=== PATIENT | female | born 1980 | race American Indian/Alaskan Native ===

== ENCOUNTER 2019-03-01 19:22 | Emergency (ER) | payer SELFPAY ==
[2019-03-01] MEDS ORDERED: CATAPRES PO ONE (19:55)
--- NOTE | 2019-03-01 19:56 | Event Note ---
ED Screening Note Date of service: 03/01/19 Time: 19:52 ED Screening Note: This is a 39 y.o. F. that presents to the ER with elevated blood pressure. Patient went to a workman comp clinic yesterday and told to f/u in ER for elevated blood pressure. Current smoker This initial assessment/diagnostic orders/clinical plan/treatment(s) is/are subject to change based on patients health status, clinical progression and re- assessment by fellow clinical providers in the ED. Further treatment and workup at subsequent clinical providers discretion. Patient/guardian urged not to elope from the ED as their condition may be serious if not clinically assessed and managed. Initial orders include: CMP, CBC, UA Given clonidine 0.2 mg po once.
[2019-03-01] MEDS ORDERED: CATAPRES ONE (19:58)
[2019-03-01 20:36] LABS: Basophils % (Auto) 0.4 % (0.0-1.8); Eosinophils # (Auto) 0.2 K/mm3 (0.0-0.4); Eosinophils % (Auto) 1.7 % (0.0-4.3); Hematocrit 38.7 % (30.3-42.9); Hemoglobin 12.5 gm/dl (10.1-14.3); Lymphocytes # (Auto) 3.1 K/mm3 (1.2-5.4); Lymphocytes % (Auto) 30.9 % (13.4-35.0); Mean Corpuscular HGB Conc 32 % (30-34); Mean Corpuscular Volume 80 fl (79-97); Monocytes # (Auto) 0.7 K/mm3 (0.0-0.8); Monocytes % (Auto) 7.3 % (0.0-7.3); Platelet Count 229 K/mm3 (140-440); Red Blood Count 4.82 M/mm3 (3.65-5.03)
[2019-03-01 20:47] LABS: Alanine Aminotransferase 20 units/L (7-56); Albumin 4.1 g/dL (3.9-5); BUN/Creatinine Ratio 13; Blood Urea Nitrogen 8 mg/dL (7-17); Calcium 9.2 mg/dL (8.4-10.2); Hemolysis Index 46
--- NOTE | 2019-03-01 20:48 | Emergency Department Report ---
ED General Adult HPI - General Chief complaint: High BP Stated complaint: ELEVATED BLOOD PRESSURE Time Seen by Provider: 03/01/19 19:52 Source: patient Mode of arrival: Ambulatory Limitations: No Limitations - History of Present Illness Initial comments: Patient is a 39-year-old female that presents emergency room for elevated blood pressure. Patient states 2 days ago she was told she had high blood pressure [facility]. Patient denies chest pain. Patient denies headache. Patient denies dizziness. Patient denies blurry vision. Patient denies physical complaint. Patient states she has a history of PCO S and high blood pressure. Patient states she is not currently taking any blood pressure medication. -: Sudden Improves with: rest Worsens with: eating, movement Associated Symptoms: denies other symptoms. denies: confusion, chest pain, cough, diaphoresis, fever/chills, headaches, loss of appetite, malaise, nausea/vomiting, rash, seizure, shortness of breath, syncope, weakness Treatments Prior to Arrival: none - Related Data Previous Rx's Medication Instructions Recorded Last Taken Type Losartan [Cozaar] 50 mg PO QDAY 15 Days #15 tablet 03/01/19 Unknown Rx Allergies Allergy/AdvReac Type Severity Reaction Status Date / Time No Known Allergies Allergy Unverified 03/01/19 19:57 ED Review of Systems ROS: Stated complaint: ELEVATED BLOOD PRESSURE Other details as noted in HPI Constitutional: denies: chills, fever Eyes: denies: eye pain, eye discharge, vision change ENT: denies: ear pain, throat pain Respiratory: denies: cough, shortness of breath, wheezing Cardiovascular: denies: chest pain, palpitations Endocrine: no symptoms reported Gastrointestinal: denies: abdominal pain, nausea, diarrhea Genitourinary: denies: urgency, dysuria, discharge Musculoskeletal: denies: back pain, joint swelling, arthralgia Skin: denies: rash, lesions Neurological: denies: headache, weakness, paresthesias Psychiatric: denies: anxiety, depression Hematological/Lymphatic: denies: easy bleeding, easy bruising ED Past Medical Hx - Past Medical History Previous Medical History?: Yes Hx Hypertension: Yes Additional medical history: Obesity - Surgical History Past Surgical History?: No - Family History Family history: no significant - Social History Smoking Status: Current Every Day Smoker Substance Use Type: None - Medications Home Medications: Home Medications Medication Instructions Recorded Confirmed Last Taken Type Losartan [Cozaar] 50 mg PO QDAY 15 Days #15 tablet 03/01/19 Unknown Rx ED Physical Exam - General Limitations: No Limitations General appearance: alert, in no apparent distress - Head Head exam: Present: atraumatic, normocephalic - Eye Eye exam: Present: normal appearance, PERRL, EOMI Pupils: Present: normal accommodation - ENT ENT exam: Present: mucous membranes moist - Neck Neck exam: Present: normal inspection - Respiratory Respiratory exam: Present: normal lung sounds bilaterally. Absent: respiratory distress - Cardiovascular Cardiovascular Exam: Present: regular rate, normal rhythm. Absent: systolic murmur, diastolic murmur, rubs, gallop - GI/Abdominal GI/Abdominal exam: Present: soft, normal bowel sounds - Rectal Rectal exam: Present: deferred - Extremities Exam Extremities exam: Present: normal inspection - Back Exam Back exam: Present: normal inspection - Neurological Exam Neurological exam: Present: alert, oriented X3 - Psychiatric Psychiatric exam: Present: normal affect, normal mood - Skin Skin exam: Present: warm, dry, intact, normal color. Absent: rash ED Course Vital Signs 03/01/19 03/01/19 03/01/19 19:28 19:57 20:40 Temperature 98.2 F Pulse Rate 91 H 91 H Respiratory 16 12 Rate Blood Pressure 256/127 256/127 Blood Pressure [Right] O2 Sat by Pulse 99 97 Oximetry 03/01/19 03/01/19 03/01/19 21:10 21:40 22:30 Temperature 98.3 F Pulse Rate 75 73 68 Respiratory 13 17 19 Rate Blood Pressure Blood Pressure 184/100 171/91 150/70 [Right] O2 Sat by Pulse 100 100 99 Oximetry - Reevaluation(s) Reevaluation #1: Initial evaluation done. Patient given clonidine already and patient's blood p ressure is improved. Patient will be monitored and blood pressure rechecked periodically until blood pressures in a more safe range. 03/01/19 20:48 Reevaluation #2: Patient's blood pressure is dramatically better. Patient denies any symptoms or pain or physical complaints. I discussed all results with patient. I discussed plan of care with patient. Patient agrees to plan of care. Patient will be discharged home. Patient is stable discharge. Patient given discharge instructions. Patient voiced understanding of all structures. 03/01/19 21:56 ED Medical Decision Making - Lab Data Result diagrams: 03/01/19 20:16 03/01/19 20:16 - Medical Decision Making Patient is a 39-year-old female that S emergency room for management of her high blood pressure. Patient did not have any physical complaints. Patient was given blood pressure medications in the ER and her blood pressure responded well. I discussed at length with the patient importance of a healthy diet and low salt diet and continue his management of her blood pressure. I discussed the patient out of monitor her blood pressure. Patient stable for discharge. Patient discharged home. Patient's labs unremarkable. - Differential Diagnosis high blood pressure. Noncompliance Critical Care Time: Yes Critical care attestation.: If time is entered above; I have spent that time in minutes in the direct care of this critically ill patient, excluding procedure time. Critical Care Time: 35 minutes ED Disposition Clinical Impression: Hypertensive urgency Hypertension Qualifiers: Hypertension type: essential hypertension Qualified Code(s): I10 - Essential (primary) hypertension Disposition: - TO HOME OR SELFCARE Is pt being admited?: No Does the pt Need Aspirin: No Condition: Stable Instructions: Heart Healthy Diet (ED), How to Take a Blood Pressure (ED), DASH Eating Plan (ED), Low Sodium Diet (ED), Hypertension (ED) Additional Instructions: Patient to follow up with primary care in 2-3 days. Patient to take medications as instructed. Patient to return to ER if condition worsens. Patient increase water. Patient to eat heart healthy, low sodium diet. Patient to monitor blood pressure. Patient to keep a blood pressure log and take to her primary care follow-up. Prescriptions: Losartan [Cozaar] 50 mg PO QDAY 15 Days #15 tablet Referrals: MURRAY TURCIOS MD [Primary Care Provider] - 2-3 Days Time of Disposition: 21:59
[2019-03-01 21:16] LABS: Bilirubin,Urine NEG (Negative); Blood,Urine NEG (Negative); Color,Urine Straw (Yellow); Mucus,Urine FEW /HPF; Protein,Urine <15 mg/dL mg/dL (Negative); Urobilinogen,Urine < 2.0 mg/dL (<2.0)
[2019-03-01 22:31] VITALS: BP 150/70
== END 2019-03-01 22:45 | disposition home or self-care (01) ==
LOC: ED 19:22
DX: I16.0 Hypertensive urgency (principal); I10 Essential (primary) hypertension; F17.200 Nicotine dependence, unspecified, uncomplicated; E66.9 Obesity, unspecified; Z79.899 Other long term (current) drug therapy
CPT/HCPCS: 36415; 80053; 81001; 85025

== ENCOUNTER 2019-03-02 23:17 | Emergency (ER) | payer SELFPAY ==
[2019-03-02] MEDS ORDERED: CATAPRES PO ONE (23:48)
[2019-03-02] MEDS ORDERED: CATAPRES ONE (23:49)
[2019-03-03 00:03] LABS: Basophils % (Auto) 0.3 % (0.0-1.8); Eosinophils # (Auto) 0.1 K/mm3 (0.0-0.4); Eosinophils % (Auto) 1.8 % (0.0-4.3); Hematocrit 37.9 % (30.3-42.9); Hemoglobin 12.4 gm/dl (10.1-14.3); Lymphocytes # (Auto) 3.1 K/mm3 (1.2-5.4); Lymphocytes % (Auto) 38.3 % (13.4-35.0); Mean Corpuscular HGB Conc 33 % (30-34); Mean Corpuscular Volume 80 fl (79-97); Monocytes # (Auto) 0.8 K/mm3 (0.0-0.8); Monocytes % (Auto) 9.5 % (0.0-7.3); Platelet Count 234 K/mm3 (140-440); Red Blood Count 4.74 M/mm3 (3.65-5.03); Red Cell Distribution Width 16.4 % (13.2-15.2)
--- NOTE | 2019-03-03 00:24 | XRay Report ---
CHEST 1 VIEW INDICATION / CLINICAL INFORMATION: Chest Pain. COMPARISON: None available. FINDINGS: SUPPORT DEVICES: None. HEART / MEDIASTINUM: No significant abnormality. LUNGS / PLEURA: No significant pulmonary or pleural abnormality. No pneumothorax. ADDITIONAL FINDINGS: No significant additional findings. IMPRESSION: 1. No acute findings. Signer Name: Benja Morin MD Signed: 03/03/2019 12:20 AM Workstation Name: [id number]
[2019-03-03 00:27] LABS: BUN/Creatinine Ratio 15; Blood Urea Nitrogen 9 mg/dL (7-17); Calcium 9.1 mg/dL (8.4-10.2); Hemolysis Index 10
[2019-03-03] MEDS ORDERED: NORMODYNE IV ONE (02:35)
--- NOTE | 2019-03-03 03:42 | Emergency Department Report ---
ED Chest Pain HPI - General Chief Complaint: Chest Pain Stated Complaint: CP/HIGH BP/LIGHTHEADED Time Seen by Provider: 03/03/19 01:55 Source: patient Mode of arrival: Ambulatory Limitations: No Limitations - History of Present Illness Initial Comments: patient presents to er with chest pain, lightheadedness and elevated bp. was seen for same yesterday, took her bp pills but bp remained high. no n/v, or diaphoresis. -: Gradual Severity scale (0 -10): 0 - Related Data Previous Rx's Medication Instructions Recorded Last Taken Type Losartan [Cozaar] 50 mg PO BID 60 Days #15 tablet 03/03/19 Unknown Rx Allergies Allergy/AdvReac Type Severity Reaction Status Date / Time No Known Allergies Allergy Unverified 03/01/19 19:57 Heart Score - HEART Score History: Slightly suspicious EKG: Significant ST-depression Age: < 45 Risk factors: 1-2 risk factors Troponin: < normal limit HEART Score: 3 - Critical Actions Critical Actions: 0-3 pts:0.9-1.7%risk of adverse cardiac event.Candidate for discharge ED Review of Systems ROS: Stated complaint: CP/HIGH BP/LIGHTHEADED Other details as noted in HPI Comment: All other systems reviewed and negative ENT: ear pain Respiratory: cough Cardiovascular: chest pain Endocrine: denies: excessive sweating Gastrointestinal: denies: abdominal pain ED Past Medical Hx - Past Medical History Previous Medical History?: Yes Hx Hypertension: Yes (newly diagnosed) Additional medical history: Obesity - Surgical History Past Surgical History?: No - Social History Smoking Status: Former Smoker - Medications Home Medications: Home Medications Medication Instructions Recorded Confirmed Last Taken Type Losartan [Cozaar] 50 mg PO BID 60 Days #15 tablet 03/03/19 Unknown Rx ED Physical Exam - General Limitations: No Limitations General appearance: alert, in no apparent distress - Head Head exam: Present: atraumatic, normocephalic - Eye Eye exam: Present: normal appearance, PERRL, EOMI - Neck Neck exam: Present: normal inspection - Respiratory Respiratory exam: Present: normal lung sounds bilaterally - Cardiovascular Cardiovascular Exam: Present: regular rate, normal rhythm - GI/Abdominal GI/Abdominal exam: Present: soft, normal bowel sounds - Back Exam Back exam: Present: normal inspection - Neurological Exam Neurological exam: Present: alert, oriented X3, CN II-XII intact - Skin Skin exam: Present: warm ED Course Vital Signs 03/02/19 03/02/19 03/03/19 23:37 23:49 01:50 Temperature 98.5 F Pulse Rate 75 75 75 Respiratory 16 19 Rate Blood Pressure 194/99 194/99 Blood Pressure 155/90 [Left] O2 Sat by Pulse 100 100 Oximetry 03/03/19 03/03/19 02:50 03:40 Temperature Pulse Rate 72 82 Respiratory 17 Rate Blood Pressure 186/103 Blood Pressure 160/83 [Left] O2 Sat by Pulse 98 Oximetry ED Medical Decision Making - Lab Data Result diagrams: 03/02/19 23:45 03/02/19 23:45 Critical care attestation.: If time is entered above; I have spent that time in minutes in the direct care of this critically ill patient, excluding procedure time. ED Disposition Clinical Impression: Hypertension Qualifiers: Hypertension type: essential hypertension Qualified Code(s): I10 - Essential (primary) hypertension Chest pain Qualifiers: Chest pain type: other chest pain Qualified Code(s): R07.89 - Other chest pain; R07.8 - Other chest pain Disposition: DC-01 TO HOME OR SELFCARE Is pt being admited?: No Does the pt Need Aspirin: No Condition: Stable Instructions: Hypertension (ED), Chest Pain (ED) Prescriptions: Losartan [Cozaar] 50 mg PO BID 60 Days #15 tablet Referrals: MURRAY TURCIOS MD [Primary Care Provider] - 3-5 Days
[2019-03-03 04:08] VITALS: BP 155/87
== END 2019-03-03 04:05 | disposition home or self-care (01) ==
LOC: ED 23:17
DX: I10 Essential (primary) hypertension (principal); R07.89 Other chest pain; E66.01 Morbid (severe) obesity due to excess calories; Z68.41 Body mass index [BMI] 40.0-44.9, adult; Z87.891 Personal history of nicotine dependence; Z79.899 Other long term (current) drug therapy
CPT/HCPCS: 36415; 71045; 80048; 84484; 84703; 85025; 93005; 93010; 96374

== ENCOUNTER 2019-03-05 21:17 | Emergency (ER) | payer SELFPAY ==
--- NOTE | 2019-03-05 22:02 | Event Note ---
ED Screening Note Date of service: 03/05/19 Time: 22:00 ED Screening Note: 39 y/o female comes in for chest tightness, dizziness and elevated blood pressure. Recently started on Cozzar 100mg. This initial assessment/diagnostic orders/clinical plan/treatment(s) is/are subject to change based on patients health status, clinical progression and re- assessment by fellow clinical providers in the ED. Further treatment and workup at subsequent clinical providers discretion. Patient/guardian urged not to elope from the ED as their condition may be serious if not clinically assessed and managed. Initial orders include:
[2019-03-05] MEDS ORDERED: NORMODYNE PO ONE (22:27)
[2019-03-05 22:31] LABS: Basophils % (Auto) 0.2 % (0.0-1.8); Eosinophils # (Auto) 0.1 K/mm3 (0.0-0.4); Eosinophils % (Auto) 1.3 % (0.0-4.3); Hematocrit 39.4 % (30.3-42.9); Lymphocytes % (Auto) 31.9 % (13.4-35.0); Mean Corpuscular HGB Conc 33 % (30-34); Mean Corpuscular Volume 80 fl (79-97); Monocytes # (Auto) 0.8 K/mm3 (0.0-0.8); Monocytes % (Auto) 8.1 % (0.0-7.3); Platelet Count 256 K/mm3 (140-440); Red Blood Count 4.95 M/mm3 (3.65-5.03); Red Cell Distribution Width 16.5 % (13.2-15.2)
--- NOTE | 2019-03-05 22:35 | Emergency Department Report ---
ED Chest Pain HPI - General Chief Complaint: Chest Pain Stated Complaint: CHEST PAIN Time Seen by Provider: 03/05/19 22:00 Source: patient Mode of arrival: Ambulatory Limitations: No Limitations - History of Present Illness Initial Comments: Mrs. Mills is a very pleasant 39-year-old female who presents with elevated blood pressure and chest tightness. She has history of PCO S and hypertension. However she has not ever taken antihypertensive medication. Several days ago she was evaluated by my colleague after being told that her blood pressure was elevated at her [facility]. Says currently she was evaluated recently in the interim for chest pain. She is currently taking Cozaar twice a day with persistent elevated blood pressure at home. MD Complaint: chest pain -: Gradual, This afternoon Onset: during rest Pain Location: left chest Severity: mild Quality: aching Consistency: now resolved Improves With: nothing Worsens With: nothing Context: recent illness Treatments Prior to Arrival: none - Related Data Previous Rx's Medication Instructions Recorded Last Taken Type Losartan [Cozaar] 50 mg PO BID 60 Days #15 tablet 03/03/19 Unknown Rx hydroCHLOROthiazide [HCTZ] 25 mg PO QDAY #30 tablet 03/05/19 Unknown Rx Allergies Allergy/AdvReac Type Severity Reaction Status Date / Time No Known Allergies Allergy Unverified 03/01/19 19:57 Heart Score - HEART Score History: Slightly suspicious EKG: Normal Age: < 45 Risk factors: 1-2 risk factors Troponin: < normal limit HEART Score: 1 ED Review of Systems ROS: Stated complaint: CHEST PAIN Other details as noted in HPI Comment: All other systems reviewed and negative Constitutional: denies: fever, malaise Respiratory: denies: cough Cardiovascular: chest pain Skin: denies: rash, lesions ED Past Medical Hx - Past Medical History Previous Medical History?: Yes Hx Hypertension: Yes (newly diagnosed) Additional medical history: Obesity - Social History Smoking Status: Former Smoker Substance Use Type: None - Medications Home Medications: Home Medications Medication Instructions Recorded Confirmed Last Taken Type Losartan [Cozaar] 50 mg PO BID 60 Days #15 tablet 03/03/19 Unknown Rx hydroCHLOROthiazide [HCTZ] 25 mg PO QDAY #30 tablet 03/05/19 Unknown Rx ED Physical Exam - General Limitations: No Limitations General appearance: alert, in no apparent distress - Head Head exam: Present: atraumatic, normocephalic - Eye Eye exam: Present: normal appearance - ENT ENT exam: Present: mucous membranes moist - Neck Neck exam: Present: normal inspection, full ROM - Respiratory Respiratory exam: Present: normal lung sounds bilaterally. Absent: respiratory distress, wheezes, rales, rhonchi - Cardiovascular Cardiovascular Exam: Present: regular rate, normal rhythm, normal heart sounds. Absent: systolic murmur, diastolic murmur, rubs, gallop - GI/Abdominal GI/Abdominal exam: Present: soft, normal bowel sounds. Absent: distended, tenderness, guarding, rebound - Extremities Exam Extremities exam: Present: normal inspection - Back Exam Back exam: Present: normal inspection - Neurological Exam Neurological exam: Present: alert, oriented X3 - Psychiatric Psychiatric exam: Present: normal affect, normal mood - Skin Skin exam: Present: warm, dry, intact, normal color. Absent: rash ED Course Vital Signs 03/05/19 03/05/19 03/05/19 21:42 22:00 23:04 Temperature 97.9 F 97.9 F Pulse Rate 86 86 86 Respiratory 16 Rate Blood Pressure 205/108 205/109 214/105 O2 Sat by Pulse 100 100 Oximetry ED Medical Decision Making - Lab Data Result diagrams: 03/05/19 22:08 03/05/19 22:08 - EKG Data 03/05/19 22:32 EKG obtained 2135 Normal sinus rhythm rate 80 beats a minute normal axis normal intervals and nonspecific T wave pattern no significant ST elevation EKG is unchanged from previous EKG obtained 03/03/2019 - Medical Decision Making Mrs. Mills presents with hypertensive urgency and transient nonspecific chest pain. 1. Cozaar not optimal in -[place] patient as monotherapy. I have added hydrochlorothiazide to Losartan 50 mg PO BID 2. transient nonspecific chest pain at rest: I do not suspect ACS PE dissection or any emergent cause of chest pain. She would benefit from urgent cardiology evaluation. I have sent request for outpatient adult ministries director appt for urgent f/u I have reviewed labs, CBC chemistry troponin all within normal limits. Critical care attestation.: If time is entered above; I have spent that time in minutes in the direct care of this critically ill patient, excluding procedure time. ED Disposition Clinical Impression: Hypertensive urgency, Chest pain Disposition: DC-01 TO HOME OR SELFCARE Is pt being admited?: No Does the pt Need Aspirin: No Condition: Stable Instructions: Chest Pain (ED), Hypertension (ED) Additional Instructions: You will be contacted for a follow up appointment by our cardiology team. Prescriptions: hydroCHLOROthiazide [HCTZ] 25 mg PO QDAY #30 tablet Forms: Work/School Release Form(ED)
[2019-03-05 22:39] LABS: Alanine Aminotransferase 24 units/L (7-56); Albumin 4.2 g/dL (3.9-5); BUN/Creatinine Ratio 20; Blood Urea Nitrogen 12 mg/dL (7-17); Calcium 9.7 mg/dL (8.4-10.2); Hemolysis Index 4
--- NOTE | 2019-03-05 22:56 | XRay Report ---
CHEST 2 VIEWS INDICATION / CLINICAL INFORMATION: chest tightness. COMPARISON: 03/03/2019 FINDINGS: SUPPORT DEVICES: None. HEART / MEDIASTINUM: No significant abnormality. LUNGS / PLEURA: No significant pulmonary or pleural abnormality. No pneumothorax. ADDITIONAL FINDINGS: No significant additional findings. IMPRESSION: 1. No acute findings. Signer Name: Benja Morin MD Signed: 03/05/2019 10:51 PM Workstation Name: [id number]
[2019-03-06 00:59] VITALS: BP 158/107
== END 2019-03-06 00:57 | disposition home or self-care (01) ==
LOC: ED 21:17
DX: I16.0 Hypertensive urgency (principal); I10 Essential (primary) hypertension; R07.89 Other chest pain; E66.9 Obesity, unspecified; Z87.891 Personal history of nicotine dependence; Z79.899 Other long term (current) drug therapy
CPT/HCPCS: 36415; 71046; 80053; 84484; 85025; 93005; 93010

== ENCOUNTER 2019-03-20 06:22 | Emergency (ER) | payer SELFPAY ==
[2019-03-20] MEDS ORDERED: CATAPRES PO ONE (07:47)
[2019-03-20 08:04] VITALS: BP 134/79
--- NOTE | 2019-03-20 08:08 | Emergency Department Report ---
Chief Complaint: High BP Stated Complaint: HBP Time Seen by Provider: 03/20/19 07:24 - HPI History of Present Illness: The patient is a 39-year-old female with a history of hypertension presently takes losartan 50 mg twice a day as well as hydrocodone chlorothiazide 25 mg daily. Patient states that she ran out of her losartan yesterday and has not taken any today. Patient states that she usually does not miss a dose and is worried which is irrigated today. Patient states she has a new appointment with her primary care physician tomorrow. Patient denies any fever, chills, nausea, vomiting, headache, dizziness, chest pain, shortness of breath, blurred vision or any other symptoms. - ROS Review of Systems: As noted in HPI. All systems reviewed and negative - Exam Vital Signs: Vital Signs 03/20/19 06:26 Temperature 98.1 F Pulse Rate 79 Respiratory 16 Rate Blood Pressure 171/101 O2 Sat by Pulse 99 Oximetry Physical Exam: GENERAL: Alert and oriented x3, no apparent distress, Normal Gait, atraumatic. HEAD: Head is normocephalic and a-traumatic. SKIN: Warm and dry, No lesions, No ulceration or induration present. MSE screening note: Focused history and physical exam performed. Due to findings the following was ordered: ED Medical Decision Making - Medical Decision Making This 39-year-old female with a history of blood pressure presents to ED asking for refill of her medication as she has run out. Blood pressure in the triage was 171/101. After my evaluation upon reevaluation of the blood pressure was normalized. Differential patient was not medicated in the ED but will be sent home on a refill for her blood pressure medications. Patient had no other complaints. Patient is alert and oriented times threes in no acute distress vital signs are normal. ED Disposition for MSE Clinical Impression: High blood pressure disorder, Elevated blood pressure reading Disposition: DC-01 TO HOME OR SELFCARE Is pt being admited?: No Does the pt Need Aspirin: No Condition: Stable Instructions: Hypertension (ED) Additional Instructions: Make sure to follow up with the primary care physician as discussed. Take all your medications as you've been prescribed. If you have any worsening symptoms or develop new symptoms please return to ED immediately. Prescriptions: Losartan [Cozaar] 50 mg PO BID 30 Days #60 tablet hydroCHLOROthiazide [HCTZ] 25 mg PO QDAY #30 tablet Referrals: [facility] [Provider Group] - 3-5 Days Forms: Work/School Release Form(ED) Time of Disposition: 08:09
== END 2019-03-20 08:37 | disposition home or self-care (01) ==
LOC: ED 06:22
DX: I10 Essential (primary) hypertension (principal)

== ENCOUNTER 2020-11-16 01:03 | Emergency (ER) | payer BC ==
--- NOTE | 2020-11-16 02:13 | XRay Report ---
CHEST 1 VIEW INDICATION: Chest Pain. COMPARISON: 03/05/2019 FINDINGS: SUPPORT DEVICES: None. HEART: Within normal limits. LUNGS/PLEURA: No acute air space or interstitial disease. ADDITIONAL FINDINGS: None. IMPRESSION: 1. No acute findings. Signer Name: Romulo Ferreira MD Signed: 11/16/2020 2:09 AM Workstation Name: [id number]
--- NOTE | 2020-11-16 02:18 | Emergency Department Report ---
HPI - General Chief Complaint: Chest Pain Time Seen by Provider: 11/16/20 01:58 - HPI HPI: This is a 40-year-old female presents to the emergency department with a complaint of uncontrolled blood pressure and some palpitations she developed earlier in the day that she describes as a "fluttering." Patient does have a history of hypertension and says that she has been off of her medications for the past 2 months. She thinks that one of the medications is losartan, but cannot remember the name of the other medication. She also says that she was recently diagnosed with HIV but has been on medication for this and has been compliant. She denies any headache, vision change, chest pain, shortness of breath, lower extremity swelling, nausea, vomiting, fever, diaphoresis. No recent travel or sick contacts at home. She has not taken anything for symptoms prior to presentation today. She does smoke cigarettes but denies any illicit drug use or any alcohol use/dependence. ED Past Medical Hx - Past Medical History Hx Hypertension: Yes Hx HIV: Yes (recently diagnosed) Additional medical history: Obesity - Social History Smoking Status: Current Every Day Smoker - Medications Home Medications: Home Medications Medication Instructions Recorded Confirmed Last Taken Type hydroCHLOROthiazide [HCTZ] 25 mg PO QDAY #30 tablet 03/20/19 Unknown Rx Losartan [Cozaar] 50 mg PO BID #60 tablet 11/16/20 Unknown Rx ED Review of Systems ROS: Stated complaint: HIGH BLOOD PRESSURE Other details as noted in HPI Comment: All other systems reviewed and negative Constitutional: denies: chills, fever Eyes: denies: eye pain, vision change ENT: denies: ear pain, throat pain Respiratory: denies: cough, shortness of breath Cardiovascular: palpitations. denies: chest pain, edema Gastrointestinal: denies: abdominal pain, vomiting Genitourinary: denies: dysuria, discharge Musculoskeletal: denies: back pain, arthralgia Skin: denies: rash, lesions Neurological: denies: headache, weakness Physical Exam - Physical Exam Vital Signs: Vital Signs 11/16/20 01:39 Temperature 98.0 F Pulse Rate 140 H Respiratory 18 Rate Blood Pressure 198/126 O2 Sat by Pulse 98 Oximetry Physical Exam: GENERAL: The patient is well-developed well-nourished. HENT: Normocephalic. Atraumatic. Patient has moist mucous membranes. EYES: Extraocular motions are intact. NECK: Supple. Trachea is midline. CHEST/LUNGS: Clear to auscultation. There is no respiratory distress noted. HEART/CARDIOVASCULAR: Regular. There is moderate tachycardia. There is no murmur. ABDOMEN: Abdomen is soft, nontender. Patient has normal bowel sounds. SKIN: Skin is warm and dry. NEURO: The patient is awake, alert, and oriented. The patient is cooperative. The patient has no focal neurologic deficits. Normal speech. MUSCULOSKELETAL: There is no tenderness or deformity. There is no limitation range of motion. ED Course Vital Signs 11/16/20 01:39 Temperature 98.0 F Pulse Rate 140 H Respiratory 18 Rate Blood Pressure 198/126 O2 Sat by Pulse 98 Oximetry - Reevaluation(s) Reevaluation #1: 11/16/20 06:08 The patient had some improvement in her blood pressure and tachycardia with a dose of labetalol. She was later given a dose of Cardizem and the tachycardia has resolved and the blood pressure has greatly improved. Labs thus far have been unremarkable. There is a malfunction in the machines used to test coags and D-dimer. I am waiting for a D-dimer. After a lengthy discussion with the patient and mutual decision making, we have decided to order the CT angiography of the chest without the D-dimer result. ED Medical Decision Making - Lab Data Result diagrams: 11/16/20 01:49 11/16/20 01:49 - EKG Data -: EKG Interpreted by Me EKG shows normal: sinus rhythm, axis (Right axis deviation), intervals, QRS complexes (Q waves to the septal leads), ST-T waves (T wave inversions to the inferior leads) Rate: tachycardia (136 bpm) - EKG Data When compared to previous EKG there are: changes noted (Previous EKG did not show any tachycardia or right axis deviation) Interpretation: other (Sinus tachycardia at 136 bpm, right axis deviation, T wave inversions to the inferior leads, Q waves to the septal leads) - Radiology Data Radiology results: report reviewed CTA CHEST WITH IV CONTRAST INDICATION: Chest pain, shortness of breath, palpitations. TECHNIQUE: Axial CT images were obtained through the chest after injection of IV contrast. 3 plane MIP reconstructions were produced. All CT scans at this location are performed using CT dose reduction for ALARA by means of automated exposure control. COMPARISON: None available. FINDINGS: Pulmonary Arteries: No pulmonary emboli. Thoracic Aorta: No acute abnormality. Heart: Normal. Lungs: No acute air space or interstitial disease. Pleura: No pleural effusion. No pneumothorax. Lymph Nodes: No significant adenopathy. Additional Findings: None. Upper Abdomen: No acute findings. Skeletal Structures: No significant osseous abnormality. IMPRESSION: 1. No CT evidence for pulmonary embolism. 2. No acute findings. - Medical Decision Making This patient presents to the emergency department with a complaint of some palpitations as if her chest/heart is fluttering. She also presents with tachycardia significant for a heart rate of about 140 bpm. She denies any chest pain, shortness of breath, lightheadedness/dizziness. She also presents with uncontrolled/elevated blood pressure with a history of medication noncompliance for at least 2 months. Patient was given a dose of labetalol, and later a dose of Cardizem, and the tachycardia resolved and the blood pressure improved to a more reasonable level. EKG did not show any morphology consistent with ST elevation myocardial infarction or any dysrhythmia. The patient's labs were mostly unremarkable including CBC, metabolic panel, negative troponin, normal thyroid function. Given the complaint of palpitations with the tachycardia, I wanted to rule out a pulmonary embolism as the source of her symptoms. I had ordered a D-dimer level but at the time of this patient's ED evaluation there was an issue with the machine used for testing coags and I was unable to obtain a D-dimer level. After speaking with the patient and shared decision-making, it was decided that the patient would have a CT angiography of the chest. The results of this were followed by my colleague but it shows that there was no evidence of any pulmonary embolism or any other acute process. The patient was restarted on blood pressure medication and instructed to follow-up with her PCP. Critical Care Time: No Critical care attestation.: If time is entered above; I have spent that time in minutes in the direct care of this critically ill patient, excluding procedure time. ED Disposition Clinical Impression: Palpitations, Hypertensive urgency, Noncompliance with medication regimen Disposition: TO HOME OR SELFCARE Is pt being admited?: No Condition: Stable Instructions: Palpitations, Hypertension, Adult Additional Instructions: Please follow-up with your primary care physician in the next few days. I am restarting you on your losartan. Try to stay away from foods that are high in salt and caffeinated products. Keep a blood pressure log. Return to the emergency department with any worsening of your symptoms, new or concerning symptoms not addressed during this current emergency department visit, or with any acute distress. Prescriptions: Losartan [Cozaar] 50 mg PO BID #60 tablet Referrals: PRIMARY CARE, [Primary Care Provider] - 2-3 Days Time of Disposition: 06:16
[2020-11-16 02:19] LABS: Hematocrit 41.1 % (30.3-42.9); Hemoglobin 13.7 gm/dl (10.1-14.3); Mean Corpuscular HGB Conc 33 % (30-34); Mean Corpuscular Volume 82 fl (79-97); Platelet Count 336 K/mm3 (140-440); Red Blood Count 5.03 M/mm3 (3.65-5.03); Red Cell Distribution Width 15.5 % (13.2-15.2)
[2020-11-16 02:40] LABS: Alanine Aminotransferase 24 units/L (7-56); Albumin 4.4 g/dL (3.9-5); BUN/Creatinine Ratio 11; Blood Urea Nitrogen 9 mg/dL (7-17); Calcium 9.6 mg/dL (8.4-10.2); Hemolysis Index 10
[2020-11-16] MEDS ORDERED: dilTIAZem 25 MG/5 ML INJ IV ONE (03:17)
[2020-11-16 07:37] LABS: Platelet Estimate Consistent w Auto; RBC Morphology Normal; Smudge Cells Few; Total Cells Counted 100
--- NOTE | 2020-11-16 08:17 | Cat Scan Report ---
CTA CHEST WITH IV CONTRAST INDICATION: Chest pain, shortness of breath, palpitations. TECHNIQUE: Axial CT images were obtained through the chest after injection of IV contrast. 3 plane MIP reconstru ctions were produced. All CT scans at this location are performed using CT dose reduction for ALARA b y means of automated exposure control. COMPARISON: None available. FINDINGS: Pulmonary Arteries: No pulmonary emboli. Thoracic Aorta: No acute abnormality. Heart: Normal. Lungs: No acute air space or interstitial disease. Pleura: No pleural effusion. No pneumothorax. Lymph Nodes: No significant adenopathy. Additional Findings: None. Upper Abdomen: No acute findings. Skeletal Structures: No significant osseous abnormality. IMPRESSION: 1. No CT evidence for pulmonary embolism. 2. No acute findings. Signer Name: Ham Jordan MD Signed: 11/16/2020 8:12 AM Workstation Name: [id number]
[2020-11-16 08:32] VITALS: BP 158/99
--- NOTE | 2020-11-16 08:44 | Electrocardiograph Report ---
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
== END 2020-11-16 08:30 | disposition home or self-care (01) ==
LOC: ED 01:03
DX: I16.0 Hypertensive urgency (principal); R00.2 Palpitations; I10 Essential (primary) hypertension; F17.200 Nicotine dependence, unspecified, uncomplicated; E66.9 Obesity, unspecified; Z68.42 Body mass index [BMI] 45.0-49.9, adult; Z79.899 Other long term (current) drug therapy; Z21 Asymptomatic human immunodeficiency virus [HIV] infection status; Z91.14 Patient's other noncompliance with medication regimen
CPT/HCPCS: 36415; 71045; 71275; 80053; 84443; 84484; 84703; 85007; 85025; 93005; 96374; 96375; 99284; Q9967

== ENCOUNTER 2021-03-02 17:17 | Emergency (ER) | payer BC ==
[2021-03-02] MEDS ORDERED: ASPIRIN 325 MG TAB PO ONE (18:00)
--- NOTE | 2021-03-02 18:30 | XRay Report ---
CHEST 2 VIEWS INDICATION / CLINICAL INFORMATION: rapid heart rate. COMPARISON: 11/16/2020 FINDINGS: SUPPORT DEVICES: None. HEART / MEDIASTINUM: DX silhouette remains upper limits of normal for size. LUNGS / PLEURA: Both lungs are well-expanded and are clear. No evidence of pneumonia or significant p leural effusion. No interstitial pulmonary edema. No pneumothorax. ADDITIONAL FINDINGS: No significant additional findings. IMPRESSION: 1. No acute pulmonary disease. No interval change. Signer Name: Chelsie Cleveland MD Signed: 03/02/2021 6:26 PM Workstation Name: [id number]
[2021-03-02 18:33] LABS: Basophils # (Auto) 0.1 K/mm3 (0.0-0.1); Basophils % (Auto) 0.6 % (0.0-1.8); Eosinophils # (Auto) 0.2 K/mm3 (0.0-0.4); Eosinophils % (Auto) 1.6 % (0.0-4.3); Hematocrit 43.6 % (30.3-42.9); Hemoglobin 14.2 gm/dl (10.1-14.3); Lymphocytes # (Auto) 3.8 K/mm3 (1.2-5.4); Mean Corpuscular HGB Conc 33 % (30-34); Mean Corpuscular Volume 82 fl (79-97); Monocytes # (Auto) 0.8 K/mm3 (0.0-0.8); Monocytes % (Auto) 6.7 % (0.0-7.3); Platelet Count 380 K/mm3 (140-440); Red Blood Count 5.31 M/mm3 (3.65-5.03)
[2021-03-02 18:56] LABS: Alanine Aminotransferase 17 units/L (7-56); Albumin 4.7 g/dL (3.9-5); Blood Urea Nitrogen 8 mg/dL (7-17); Calcium 10.5 mg/dL (8.4-10.2); Hemolysis Index 30
[2021-03-02 18:57] LABS: BUN/Creatinine Ratio 13
[2021-03-02] MEDS ORDERED: hydrALAZINE 25 MG TAB PO ONE (20:13)
--- NOTE | 2021-03-02 20:19 | Emergency Department Report ---
ED General Adult HPI - General Chief complaint: Arrhythmia/Palpitations Stated complaint: RAPID HEART BEAT Time Seen by Provider: 03/02/21 20:04 Source: patient Mode of arrival: Ambulatory Limitations: No Limitations - History of Present Illness Initial comments: Patient 41-year-old -Citizen Of The [place] female who presents for generalized malaise with rapid heart rate and palpitations x3 days. Patient has history of hypertension and HIV positive. Patient states she has been out of her blood pressure medicines for the past 3 weeks. Current BP regimen includes losartan, hydrochlorothiazide, amlodipine, patient is on antiviral states current, does not know viral load. Patient does have ID follow-up. There is been no fever, chills, nausea or vomiting. No lightheadedness, no chest pain, no diaphoresis, no edema. Patient states symptoms of malaise are exacerbated by fear of hypertension and not having BP medications. Patient did pick up attendant prescriptions today and took first dose of all prescribed medications. Patient rates symptoms at 4/10 at this time. Severity scale (0 -10): 0 - Related Data Previous Rx's Medication Instructions Recorded Last Taken Type hydroCHLOROthiazide [HCTZ] 25 mg PO QDAY #30 tablet 03/20/19 Unknown Rx Losartan [Cozaar] 50 mg PO BID #60 tablet 11/16/20 Unknown Rx Allergies Allergy/AdvReac Type Severity Reaction Status Date / Time No Known Allergies Allergy Unverified 03/01/19 19:57 ED Review of Systems ROS: Stated complaint: RAPID HEART BEAT Other details as noted in HPI Constitutional: malaise Eyes: denies: eye pain, eye discharge, vision change ENT: denies: ear pain, throat pain Respiratory: denies: cough, shortness of breath, wheezing Cardiovascular: palpitations. denies: chest pain, dyspnea on exertion, orthopnea, edema, syncope, paroxysmal nocturnal dyspnea Endocrine: no symptoms reported Gastrointestinal: denies: abdominal pain, nausea, vomiting, diarrhea Genitourinary: denies: urgency, dysuria, discharge Musculoskeletal: denies: back pain, joint swelling, arthralgia Skin: denies: rash, lesions Neurological: denies: headache, weakness, paresthesias Psychiatric: anxiety Hematological/Lymphatic: denies: easy bleeding, easy bruising ED Past Medical Hx - Past Medical History Previous Medical History?: Yes Hx Hypertension: Yes Hx HIV: Yes (recently diagnosed) Additional medical history: Obesity - Surgical History Past Surgical History?: No - Social History Smoking Status: Current Every Day Smoker - Medications Home Medications: Home Medications Medication Instructions Recorded Confirmed Last Taken Type hydroCHLOROthiazide [HCTZ] 25 mg PO QDAY #30 tablet 03/20/19 Unknown Rx Losartan [Cozaar] 50 mg PO BID #60 tablet 11/16/20 Unknown Rx ED Physical Exam - General Limitations: No Limitations General appearance: alert, in no apparent distress - Head Head exam: Present: normocephalic, normal inspection - Eye Eye exam: Present: normal appearance, PERRL, EOMI Pupils: Present: normal accommodation - ENT ENT exam: Present: mucous membranes moist - Neck Neck exam: Present: normal inspection, full ROM. Absent: tenderness, lymphadenopathy, thyromegaly - Expanded Neck Exam Expanded Neck exam: Absent: thyroid mass, carotid bruit - Respiratory Respiratory exam: Present: normal lung sounds bilaterally. Absent: respiratory distress, wheezes, rales, rhonchi, stridor, chest wall tenderness, prolonged expiratory - Cardiovascular Cardiovascular Exam: Present: regular rate, normal rhythm, normal heart sounds. Absent: systolic murmur, diastolic murmur, rubs, gallop - GI/Abdominal GI/Abdominal exam: Present: soft, normal bowel sounds ED Course Vital Signs 03/02/21 03/02/21 17:52 20:25 Temperature 98.8 F Pulse Rate 94 H 85 Respiratory 18 Rate Blood Pressure 206/102 Blood Pressure 199/109 [Right] O2 Sat by Pulse 99 Oximetry - Reevaluation(s) Reevaluation #1: Patient denies palpitations at this time, no nausea vomiting, no fever, no chills, second troponin level pending. 03/02/21 20:32 ED Medical Decision Making - Lab Data Result diagrams: 03/02/21 18:03 03/02/21 18:03 Labs 03/02/21 03/02/21 03/02/21 18:03 18:03 20:38 WBC 12.6 H RBC 5.31 H Hgb 14.2 Hct 43.6 H MCV 82 MCH 27 L MCHC 33 RDW 16.0 H Plt Count 380 Lymph % (Auto) 30.0 [place] % (Auto) 6.7 Eos % (Auto) 1.6 Baso % (Auto) 0.6 Lymph # (Auto) 3.8 [place] # (Auto) 0.8 Eos # (Auto) 0.2 Baso # (Auto) 0.1 Seg Neutrophils % 61.1 Seg Neutrophils # 7.7 Sodium 138 Potassium 3.9 Chloride 100.9 Carbon Dioxide 24 Anion Gap 17 BUN 8 Creatinine 0.6 Estimated GFR > 60 BUN/Creatinine Ratio 13 Glucose 102 H Calcium 10.5 H Total Bilirubin 0.20 AST 20 ALT 17 Alkaline Phosphatase 72 Troponin T < 0.010 < 0.010 Total Protein 8.6 H Albumin 4.7 Albumin/Globulin Ratio 1.2 - EKG Data EKG shows normal: sinus rhythm Rate: normal - EKG Data When compared to previous EKG there are: no significant change (03/05/2019) Interpretation: unchanged when compared t (03/05/2019) - Radiology Data Radiology results: report reviewed, image reviewed INDICATION / CLINICAL INFORMATION: rapid heart rate. COMPARISON: 11/16/2020 FINDINGS: SUPPORT DEVICES: None. HEART / MEDIASTINUM: DX silhouette remains upper limits of normal for size. LUNGS / PLEURA: Both lungs are well-expanded and are clear. No evidence of pneumonia or significant pleural effusion. No interstitial pulmonary edema. No pneumothorax. ADDITIONAL FINDINGS: No significant additional findings. IMPRESSION: 1. No acute pulmonary disease. No interval change. Signer Name: Chelsie Cleveland MD Signed: 03/02/2021 6:26 PM Workstation Name: [id number] Transcribed By: JR Dictated By: Chelsie Cleveland MD Electronically Authenticated By: Chelsie Cleveland MD Signed Date/Time: 03/02/211825 DD/ 24 TD/TT: - Medical Decision Making Symptoms are improved. Blood pressure improved to 180/82. Trop less than 0.01 x 2, vital signs noted pt denies sob, no dizziness no palpitations, no light headedness, no chest pain. Patient denies headache, dizziness, chest pain, shortness of breath there is no nausea vomiting there is no diaphoresis. Patient is alert oriented and oriented times x3, patient is amatory with steady gait at this time, with no acute distress. Patient advises ready to go home. Patient advised to take all BP medications as prescribed, follow-up with primary care doctor in 2 to 3 days. Return to emergency department should symptoms worsen. Patient verbalized agreement and understanding of discharge plan. Patient DC'd home in stable condition at this time. Critical care attestation.: If time is entered above; I have spent that time in minutes in the direct care of this critically ill patient, excluding procedure time. ED Disposition Clinical Impression: HTN (hypertension), benign Disposition: DC-01 TO HOME OR SELFCARE Is pt being admited?: No Does the pt Need Aspirin: No Condition: Stable Instructions: Hypertension (ED), Managing Your Hypertension, Hypertension, Adult, [id number] Additional Instructions: Continue Losartan, Hydrochlorathiazide, and Amlodipine. Take all medications as prescribed, follow-up with your primary care doctor in 2 to 3 days, return to emergency department should symptoms return or worsen. Referrals: DEVAN CURRY MD [Staff Physician] - 3-5 Days Forms: Work/School Release Form(ED) Time of Disposition: 21:53
[2021-03-03 05:44] VITALS: BP 182/88
--- NOTE | 2021-03-04 10:54 | Electrocardiograph Report ---
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
== END 2021-03-02 22:05 | disposition home or self-care (01) ==
LOC: ED 17:17
DX: I10 Essential (primary) hypertension (principal); B20 Human immunodeficiency virus [HIV] disease; E66.9 Obesity, unspecified; F17.200 Nicotine dependence, unspecified, uncomplicated
CPT/HCPCS: 36415; 71046; 80053; 84484; 85025; 93005; 99284

== ENCOUNTER 2021-09-23 19:51 | Emergency (ER) | payer SELFPAY ==
[2021-09-23] MEDS ORDERED: amLODIPine 5 MG TAB PO ONE (22:45)
--- NOTE | 2021-09-23 22:46 | Emergency Department Report ---
ED General Adult HPI - General Chief complaint: High BP Stated complaint: HIGH BP PUI?: No Time Seen by Provider: 09/23/21 22:33 Source: patient, RN notes reviewed, old records reviewed Mode of arrival: Ambulatory Limitations: No Limitations - History of Present Illness Initial comments: The patient was evaluated in the emergency department for symptoms described in the history of present illness. He/she was evaluated in the context of the global COVID-19 pandemic, which necessitated consideration that the patient might be at risk for infection with the virus that causes COVID-19. Institutional protocols and algorithms that pertain to the evaluation of patients at risk for COVID-19 are in a state of rapid change based on information released by regulatory bodies including the CDC and federal and state organizations. These policies and algorithms were followed during the patient's care in the emergency department. Please note that these policies, procedures and recommendations changed on a rapid basis. The patient is a 41-year-old female, who has a history of hypertension, and has previously been prescribed HCTZ, 25 mg daily, Norvasc, 5 mg daily, losartan, 50 mg daily. She reports that she lost her insurance and ran out of her prescriptions a few weeks ago. She also reports that when she had insurance, she was receiving these prescriptions through a telemedicine service. She is not vaccinated against COVID-19, and she also has a body mass index of 40.4, and also consumes tobacco. She reports that she is not and reports that she has not delivered her given in the past 6 weeks. She also reports no travel, surgery, immobilization, DVT/PE risk factors, denies personal/family history of DVT/PE/ACS/ME. The patient reports that she was in her usual state of health earlier on today, when at approximately 1:00 PM she received disturbing news about of an individual that she knows. She reports that this triggered anxiety, and she began to feel very anxious, and had some chest tightness, and trapezius tightness. Prior to receiving the bad news, she was not having any symptoms. Her chest tightness was central, lasted for a few seconds, and did not radiate to the back, arms or neck. She denies vomiting, diaphoresis, shortness of breath, and reports that she has been pain-free for over 8 hours. She reports that she is back to her baseline. She reports that she is motivated to discontinue tobacco consumption. -: Sudden Severity scale (0 -10): 0 Consistency: now resolved Improves with: none Worsens with: none Associated Symptoms: denies other symptoms - Related Data Previous Rx's Medication Instructions Recorded Last Taken Type Amlodipine Besylate [Norvasc] 5 mg PO QDAY #30 tab 09/23/21 Unknown Rx Losartan [Cozaar] 50 mg PO QDAY #30 tablet 09/23/21 Unknown Rx Nicotine Polacrilex [Nicotine Gum] 4 mg BC PRN #1 pack 09/23/21 Unknown Rx hydroCHLOROthiazide [HCTZ] 25 mg PO QDAY #30 tablet 09/23/21 Unknown Rx Allergies Allergy/AdvReac Type Severity Reaction Status Date / Time No Known Allergies Allergy Unverified 03/01/19 19:57 ED Review of Systems ROS: Stated complaint: HIGH BP Other details as noted in HPI Comment: All other systems reviewed and negative Cardiovascular: as per HPI Psychiatric: anxiety ED Past Medical Hx - Past Medical History Previous Medical History?: Yes Hx Hypertension: Yes Hx HIV: Yes (recently diagnosed) Additional medical history: Obesity - Surgical History Past Surgical History?: No - Social History Smoking Status: Current Every Day Smoker - Medications Home Medications: Home Medications Medication Instructions Recorded Confirmed Last Taken Type Amlodipine Besylate [Norvasc] 5 mg PO QDAY #30 tab 09/23/21 Unknown Rx Losartan [Cozaar] 50 mg PO QDAY #30 tablet 09/23/21 Unknown Rx Nicotine Polacrilex [Nicotine Gum] 4 mg BC PRN #1 pack 09/23/21 Unknown Rx hydroCHLOROthiazide [HCTZ] 25 mg PO QDAY #30 tablet 09/23/21 Unknown Rx ED Physical Exam - General Limitations: No Limitations General appearance: obese - Head Head exam: Present: atraumatic, normocephalic - Eye Eye exam: Present: normal appearance, EOMI. Absent: nystagmus - ENT ENT exam: Present: normal exam, normal orophraynx, mucous membranes moist, normal external ear exam - Neck Neck exam: Present: normal inspection, full ROM. Absent: tenderness, meningismus - Respiratory Respiratory exam: Present: normal lung sounds bilaterally, chest wall tenderness. Absent: respiratory distress, wheezes, rales, rhonchi, stridor - Cardiovascular Cardiovascular Exam: Present: regular rate, normal rhythm, normal heart sounds. Absent: bradycardia, tachycardia, irregular rhythm, systolic murmur, diastolic murmur, rubs, gallop - GI/Abdominal GI/Abdominal exam: Present: soft. Absent: distended, tenderness, guarding, rebound, rigid, pulsatile mass - Extremities Exam Extremities exam: Present: normal inspection, full ROM, other (2+ pulses noted in the bilateral upper and lower extremities. There is no palpable cord. negative Homans sign. Muscular compartments are soft. The pelvis is stable.). Absent: pedal edema, calf tenderness - Back Exam Back exam: Present: normal inspection, full ROM. Absent: tenderness, CVA tenderness (R), CVA tenderness (L), paraspinal tenderness, vertebral tenderness - Neurological Exam Neurological exam: Present: alert, oriented X3, normal gait, other (No facial droop. Tongue midline. Extraocular movements intact bilaterally. Facial sensation intact to light touch in V1, V2, V3 distribution bilaterally. 5 and a 5 strength in 4 extremities. Sensation intact to light touch in 4 extremities.). Absent: motor sensory deficit - Psychiatric Psychiatric exam: Present: anxious - Skin Skin exam: Present: warm, dry, intact, normal color. Absent: rash ED Course Vital Signs 09/23/21 09/23/21 09/23/21 22:20 23:04 23:35 Temperature 98.8 F Pulse Rate 85 85 Respiratory 18 16 Rate Blood Pressure 229/128 Blood Pressure 229/128 [Right] O2 Sat by Pulse 99 Oximetry - Reevaluation(s) Reevaluation #1: 09/23/21 23:06 Differential diagnosis, including but not limited to: Anxiety, chronic hypertension, medication refill Assessment and plan: 41-year-old female, who is not currently tachycardic, t achypneic or hypoxic, who denies DVT and pulmonary embolism risk factors, who is low risk by Wells criteria for pulmonary embolism, PERC negative EKG unchanged from prior, troponin negative x 1, patient presents more than 8 hours after symptom onset, as per the [employer] clinical policy, myocardial infarction may be ruled out with 1 set of troponin/cardiac enzymes. Patient has equal pulses in the upper and lower extremities, no pulsatile abdominal mass, and an unremarkable x-ray of the chest, therefore, aortic disease is very unlikely. Patient at low risk for major adverse cardiac event as per heart score. There is a reproducible component to this patient's chest wall pain. She also reports her symptoms started immediately after receiving distressing ne ws. Extensively counseled patient on recommendations for need for outpatient primary care follow-up, compliance with medications, weight loss, tobacco cessation, and also encouraged COVID-19 vaccination. Spent approximately 5 minutes counseling patient to discontinue tobacco. All questions answered. Return precautions reviewed. 09/24/21 00:20 Patient reassessed. Laboratory studies unremarkable. Chest x-ray unremarkable. Patient endorses readiness for discharge. Return precautions reviewed ED Medical Decision Making - Lab Data Result diagrams: 09/23/21 22:51 09/23/21 22:51 Vital Signs 09/23/21 22:20 Temperature 98.8 F Pulse Rate 85 Respiratory 18 Rate Blood Pressure 229/128 [Right] O2 Sat by Pulse 99 Oximetry Lab Results 09/23/21 09/23/21 09/23/21 Range/Units 22:51 22:51 22:51 WBC 11.0 (4.5-11.0) K/mm3 RBC 4.64 (3.65-5.03) M/mm3 Hgb 13.3 (10.1-14.3) gm/dl Hct 39.1 (30.3-42.9) % MCV 84 (79-97) fl MCH 29 (28-32) pg MCHC 34 (30-34) % RDW 15.2 (13.2-15.2) % Plt Count 331 (140-440) K/mm3 Sodium 138 (137-145) mmol/L Potassium 3.9 (3.6-5.0) mmol/L Chloride 101.6 (98-107) mmol/L Carbon Dioxide 22 (22-30) mmol/L Anion Gap 18 mmol/L BUN 8 (7-17) mg/dL Creatinine 0.7 (0.6-1.2) mg/dL Estimated GFR > 60 ml/min BUN/Creatinine Ratio 11 % Glucose 106 H (65-100) mg/dL Calcium 9.6 (8.4-10.2) mg/dL Troponin T < 0.010 (0.00-0.029) ng/mL HCG, Quant < 2 (0-4) mIU/mL - EKG Data -: EKG Interpreted by [place] EKG shows normal: sinus rhythm Rate: normal - EKG Data 09/23/21 23:05 The EKG is interpreted at 22: 51 Sinus rhythm, rate 83 bpm. Normal axis, normal P wave axis, motion artifact, high left ventricular voltage. Abnormal EKG. Not a STEMI - Radiology Data Radiology results: pending, report reviewed, image reviewed XR chest routine 2V INDICATION / CLINICAL INFORMATION: cp. COMPARISON: 03/02/2021 FINDINGS: SUPPORT DEVICES: None. HEART /PULMONARY VASCULATURE: No significant abnormality. LUNGS / PLEURA: No significant pulmonary or pleural abnormality. No pneumothorax. ADDITIONAL FINDINGS: No significant additional findings. IMPRESSION: 1. No acute findings. Signer Name: Benja Parham MD Signed: 09/23/2021 11:12 PM Workstation Name: [id number] Critical care attestation.: If time is entered above; I have spent that time in minutes in the direct care of this critically ill patient, excluding procedure time. ED Disposition Clinical Impression: Body mass index exceeds 40, Medication refill, Encounter for tobacco use cessation counseling, Elevated blood pressure reading, Chest tightness, COVID-19 vaccination not done Disposition: HOME / SELF CARE / HOMELESS Is pt being admited?: No Does the pt Need Aspirin: No Condition: Good Additional Instructions: We recommend that patient complete COVID-19 vaccination series. We also recommend that the patient use nicotine gum to assist with tobacco cessation. Also recommend that patient diet, exercise, and aggressively lose weight as tolerated. Recommend follow-up with a primary care doctor within the next 6 weeks. Long-term complications of obesity, hypertension, and tobacco use include stroke, heart attack, disability, paralysis, loss of quality of life. Please return to the emergency room right away with new pain, worsened pain, migration of pain, projectile vomiting, change in mental status, confusion, inability tolerate liquid feeds, new, worsened or different symptoms not present on the initial emergency room evaluation Prescriptions: Losartan [Cozaar] 50 mg PO QDAY #30 tablet hydroCHLOROthiazide [HCTZ] 25 mg PO QDAY #30 tablet Nicotine Polacrilex [Nicotine Gum] 4 mg BC PRN #1 pack Amlodipine Besylate [Norvasc] 5 mg PO QDAY #30 tab Referrals: [facility] [Provider Group] - 3-5 Days [facility] [Outside] - 3-5 Days Forms: Work/School Release Form(ED) Heart Score - HEART Score History: Slightly suspicious EKG: Non-specific Age: < 45 Risk factors: 1-2 risk factors Troponin: < normal limit HEART Score: 2 - EKG Read Time Time EKG Completed: 22:51 EKG Read Time: 22:51 - Critical Actions Critical Actions: 0-3 pts:0.9-1.7%risk of adverse cardiac event.Candidate for discharge
[2021-09-23] MEDS ORDERED: ACETAMINOPHEN 325 MG TAB PO STA (23:04)
[2021-09-23 23:12] LABS: Hematocrit 39.1 % (30.3-42.9); Hemoglobin 13.3 gm/dl (10.1-14.3); Mean Corpuscular HGB Conc 34 % (30-34); Mean Corpuscular Volume 84 fl (79-97); Platelet Count 331 K/mm3 (140-440); Red Blood Count 4.64 M/mm3 (3.65-5.03); Red Cell Distribution Width 15.2 % (13.2-15.2)
[2021-09-23 23:27] LABS: Blood Urea Nitrogen 8 mg/dL (7-17); Calcium 9.6 mg/dL (8.4-10.2); Hemolysis Index 6
[2021-09-23 23:33] LABS: BUN/Creatinine Ratio 11
--- NOTE | 2021-09-24 00:17 | XRay Report ---
XR chest routine 2V INDICATION / CLINICAL INFORMATION: cp. COMPARISON: 03/02/2021 FINDINGS: SUPPORT DEVICES: None. HEART /PULMONARY VASCULATURE: No significant abnormality. LUNGS / PLEURA: No significant pulmonary or pleural abnormality. No pneumothorax. ADDITIONAL FINDINGS: No significant additional findings. IMPRESSION: 1. No acute findings. Signer Name: Benja Parham MD Signed: 09/24/2021 12:12 AM Workstation Name: [id number]
[2021-09-24 01:11] VITALS: BP 156/108
--- NOTE | 2021-09-24 10:08 | Electrocardiograph Report ---
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
== END 2021-09-24 02:09 | disposition home or self-care (01) ==
LOC: ED 19:51
DX: R03.0 Elevated blood-pressure reading, without diagnosis of hypertension (principal); R07.89 Other chest pain; Z76.0 Encounter for issue of repeat prescription; E66.8 Other obesity; F17.200 Nicotine dependence, unspecified, uncomplicated; I10 Essential (primary) hypertension; Z79.899 Other long term (current) drug therapy
CPT/HCPCS: 36415; 71046; 80048; 84484; 84702; 85027; 93005; 93010; 99284